=== PATIENT | male | born 1965 | race Caucasian/White ===

== ENCOUNTER 2022-03-21 18:48 | Observation (INO) ==
[2022-03-21] MEDS ORDERED: 0.9 % Sodium Chloride 1,000 ML IVC ONE (18:51)
[2022-03-21] MEDS ORDERED: Iopamidol - 370 500 ML MLS IVP ONE (18:51)
[2022-03-21 19:23] LABS: Hematocrit 36.9 % (37.5-50.1); Hemoglobin 12.1 g/dL (12.9-16.9); Mean Corpuscular HGB Conc 32.8 g/dL (31.6-35.5); Mean Corpuscular Hemoglobin 27.6 pg (28.0-33.3); Mean Corpuscular Volume 84.1 fL (83.0-100.0); Platelet Count 281 K/mcL (140-400); Red Blood Count 4.39 M/mcL (4.19-5.50); Red Cell Distribution Width 12.7 % (11.5-14.5); White Blood Count 7.7 K/mcL (4.3-11.1)
[2022-03-21 19:28] LABS: INR 1.1; Prothrombin Time 12.6 Seconds (9.4-12.1)
[2022-03-21 19:31] LABS: Activated Partial Thrombo Time 36.8 Seconds (26.0-36.0)
[2022-03-21] MEDS ORDERED: Acetaminophen 325 MG TABLET PO ONE (19:51)
[2022-03-21 19:53] LABS: Alanine Aminotransferase 16 Units/L (7-52); Albumin/Globulin Ratio 1.3 (1.1-2.2); Alkaline Phosphatase 71 Units/L (34-104); Aspartate Amino Transferase 11 Units/L (13-39); BUN/Creatinine Ratio 22 (6-26); Bilirubin,Total 0.2 mg/dL (0.3-1.0); Blood Urea Nitrogen 19 mg/dL (6-20); Carbon Dioxide 22 mEq/L (23-29); Chloride 98 mEq/L (98-107); Creatine Kinase 284 Units/L (30-223); Ethanol < 10 mg/dL (Less than 10); Globulin 3.1 g/dL (2.4-3.5); Glucose 332 mg/dL (70-105); Osmolality,Calculated 285 (280-300); Sodium 130 mEq/L (136-145); Total Protein 7.1 g/dL (6.4-8.9); Troponin I < 0.03 ng/mL (< 0.04); eGFR For African Americans > 60 (> 60); eGFR For Non-African Americans > 60 (> 60)
[2022-03-21 19:53] LABS: Bilirubin,Urine Negative (Negative); Blood,Urine Negative (Negative); Clarity,Urine Clear (Clear); Color,Urine Colorless (Yellow); Glucose,Urine (UA) >=1000 mg/dL (Normal); Ketones,Urine Negative (Negative); Leukocyte Esterase,Urine Negative (Negative); Nitrite,Urine Negative (Negative); Protein,Urine Negative (Neg-Trace); RBC,Urine 0-3 per hpf (0-3); Specific Gravity,Urine > 1.030 (1.010-1.025); Urobilinogen,Urine Normal (Normal); WBC,Urine 0-3 per hpf (0-3)
[2022-03-21] MEDS ORDERED: Aspirin 325 MG TABLET PO ONE (19:55)
[2022-03-21 20:05] LABS: Amphetamine Screen,Urine Negative ng/mL (Cutoff=1000); Barbiturate Screen,Urine Negative ng/mL (Cutoff=200); Benzodiazepines Screen,Urine Negative ng/mL (Cutoff=200); Cannabinoid Screen,Urine Negative ng/mL (Cutoff = 50); Cocaine Screen,Urine Negative ng/mL (Cutoff= 300); Opiate Screen,Urine Positive ng/mL (Cutoff=300); Phencyclidine Screen,Urine Negative ng/mL (Cutoff=25)
[2022-03-21] MEDS ORDERED: Acetaminophen 325 MG TABLET PO PRN (20:55)
[2022-03-21] MEDS ORDERED: Naloxone 0.4 MG/ML INJ IVP PRN (20:55)
[2022-03-21] MEDS ORDERED: Ondansetron 4 MG/2 ML VIAL IVP PRN (20:55)
[2022-03-21] MEDS ORDERED: *HR* Dextrose 50 % in Water (Syg) 50 ML SYRINGE IVP PRN (20:59)
[2022-03-21] MEDS ORDERED: Dextrose Gel 15 GM/37.5 ML TUBE PO PRN ×2 (20:59)
[2022-03-21] MEDS ORDERED: D5% in Water 1,000 ML IVC PRN (20:59)
[2022-03-21] MEDS: Insulin LISPRO 300 UNITS/3 ML VIAL SUBQ SCH (22:23)
[2022-03-21] MEDS ORDERED: *HR* OxyCODONE/APAP 10/325 TABLET PO PRN (22:39)
[2022-03-22 00:15] LABS: Prolactin 11.74 ng/mL (3.00-14.70)
[2022-03-22 01:57] LABS: Basophils # 0.1 K/mcL (0.0-0.2); Eosinophils # 0.4 K/mcL (0.0-0.6); Eosinophils % 5.7 %; Hematocrit 36.6 % (37.5-50.1); Immature Granulocytes % 0.4 % (0-4); Lymphocytes # 1.7 K/mcL (0.6-4.6); Lymphocytes % 23.9 %; Mean Corpuscular HGB Conc 32.8 g/dL (31.6-35.5); Mean Corpuscular Hemoglobin 28.1 pg (28.0-33.3); Mean Corpuscular Volume 85.7 fL (83.0-100.0); Monocytes # 0.6 K/mcL (0.0-1.3); Monocytes % 8.2 %; Neutrophils # 4.4 K/mcL (1.6-8.9); Platelet Count 278 K/mcL (140-400); Red Blood Count 4.27 M/mcL (4.19-5.50); Red Cell Distribution Width 12.9 % (11.5-14.5); Segmented Neutrophils % 60.8 %; White Blood Count 7.2 K/mcL (4.3-11.1)
[2022-03-22 02:18] LABS: BUN/Creatinine Ratio 19 (6-26); Blood Urea Nitrogen 15 mg/dL (6-20); Calcium 8.8 mg/dL (8.6-10.3); Carbon Dioxide 22 mEq/L (23-29); Chloride 105 mEq/L (98-107); Chol/HDL Ratio 3.3 (0-4.9); Cholesterol 105 mg/dL (< 200); Glucose 253 mg/dL (70-105); HDL Cholesterol 32 mg/dL (40-59); LDL Cholesterol,Calculated 34 mg/dL (< 100); Magnesium 1.9 mg/dL (1.6-2.6); Osmolality,Calculated 289 (280-300); Phosphorous 3.5 mg/dL (2.7-4.5); Potassium 3.6 mEq/L (3.5-5.1); Sodium 135 mEq/L (136-145); Triglycerides 193 mg/dL (< 150); eGFR For African Americans > 60 (> 60); eGFR For Non-African Americans > 60 (> 60)
[2022-03-22 02:30] LABS: Thyroid Stimulating Hormone 1.014 mcIU/mL (0.340-5.600)
[2022-03-22 02:31] LABS: Estimated Average Glucose 235 mg/dl; Hemoglobin A1C 9.8 %
[2022-03-22 02:56] LABS: Folate > 22.3 ng/mL (3.0-16.0); Vitamin B12 421 pg/mL (250-1100)
[2022-03-22] MEDS: Gabapentin 400 MG CAPSULE PO SCH ×2 (08:14→21:23)
[2022-03-22] MEDS: Insulin LISPRO 300 UNITS/3 ML VIAL SUBQ SCH ×3 (08:14→18:00)
[2022-03-22] MEDS: FLUoxetine 20 MG CAPSULE PO SCH (08:14)
[2022-03-22] MEDS: Lithium Carbonate 300 MG CAPSULE PO SCH ×2 (08:15→21:22)
[2022-03-22] MEDS: Empagliflozin [Jardiance] 25 MG PO SCH (08:15)
[2022-03-22] MEDS: Aspirin Enteric Coated 81 MG Tablet PO SCH (08:15)
[2022-03-22] MEDS: lisinopriL 5 MG TABLET PO SCH (08:15)
[2022-03-22] MEDS ORDERED: QUEtiapine Fumarate 300 MG TABLET PO SCH (09:00)
[2022-03-22] MEDS ORDERED: *HR* Enoxaparin 30 MG/0.3 ML SYRINGE SQ SCH (09:00)
[2022-03-22] MEDS ORDERED: Insulin DETEMIR 100 UNIT/ML X5UNITS SUBQ SCH (21:00)
[2022-03-22] MEDS ORDERED: *HR* LORazepam 2 MG/ML VIAL IVP ONE (21:25)
[2022-03-23 01:41] LABS: Basophils # 0.1 K/mcL (0.0-0.2); Basophils % 1.2 %; Eosinophils # 0.4 K/mcL (0.0-0.6); Eosinophils % 4.5 %; Hemoglobin 12.5 g/dL (12.9-16.9); Immature Granulocytes % 0.8 % (0-4); Lymphocytes # 2.1 K/mcL (0.6-4.6); Lymphocytes % 26.6 %; Mean Corpuscular HGB Conc 32.9 g/dL (31.6-35.5); Mean Corpuscular Hemoglobin 27.8 pg (28.0-33.3); Mean Corpuscular Volume 84.4 fL (83.0-100.0); Mean Platelet Volume 8.9 fL (9.4-12.4); Monocytes # 0.7 K/mcL (0.0-1.3); Monocytes % 9.3 %; Neutrophils # 4.5 K/mcL (1.6-8.9); Platelet Count 317 K/mcL (140-400); Red Cell Distribution Width 12.8 % (11.5-14.5); Segmented Neutrophils % 57.6 %; White Blood Count 7.8 K/mcL (4.3-11.1)
[2022-03-23 01:59] LABS: Alanine Aminotransferase 16 Units/L (7-52); Albumin/Globulin Ratio 1.2 (1.1-2.2); Alkaline Phosphatase 62 Units/L (34-104); Aspartate Amino Transferase 13 Units/L (13-39); BUN/Creatinine Ratio 14 (6-26); Bilirubin,Total 0.2 mg/dL (0.3-1.0); Blood Urea Nitrogen 12 mg/dL (6-20); Calcium 9.4 mg/dL (8.6-10.3); Carbon Dioxide 25 mEq/L (23-29); Chloride 104 mEq/L (98-107); Globulin 3.4 g/dL (2.4-3.5); Glucose 209 mg/dL (70-105); Osmolality,Calculated 290 (280-300); Potassium 3.8 mEq/L (3.5-5.1); Sodium 137 mEq/L (136-145); Total Protein 7.4 g/dL (6.4-8.9); eGFR For African Americans > 60 (> 60); eGFR For Non-African Americans > 60 (> 60)
[2022-03-23] MEDS: lisinopriL 5 MG TABLET PO SCH (08:40)
[2022-03-23] MEDS: Insulin LISPRO 300 UNITS/3 ML VIAL SUBQ SCH ×2 (08:40→12:36)
[2022-03-23] MEDS: Aspirin Enteric Coated 81 MG Tablet PO SCH (08:40)
[2022-03-23] MEDS: FLUoxetine 20 MG CAPSULE PO SCH (08:40)
[2022-03-23] MEDS: Empagliflozin [Jardiance] 25 MG PO SCH (08:40)
[2022-03-23] MEDS: Lithium Carbonate 300 MG CAPSULE PO SCH (08:40)
[2022-03-23] MEDS: Gabapentin 400 MG CAPSULE PO SCH (08:40)
[2022-03-23] MEDS ORDERED: *HR* Enoxaparin 40 MG/0.4 ML SYRINGE SQ SCH (09:00)
[2022-03-23 11:52] VITALS: BP 150/94; PULSE 89; TEMP 98.8; O2SAT 98
[2022-03-23] MEDS ORDERED: QUEtiapine Fumarate 100 MG TABLET PO SCH (21:00)
== END 2022-03-23 14:17 | disposition home or self-care (01) ==
LOC: EMEROOARM 18:48 → 3BNU 18:48 → SUATTDRO 20:48 → 3BNU 20:51
PROVIDERS: ADMIT Internal Medicine; ATTEND Internal Medicine